=== PATIENT | female | born 1980 | race African-American/Black ===

== ENCOUNTER 2019-04-03 12:25 | Emergency (ER) | payer MEDICAID ==
[~2019-04-03] VITALS: Ht 157.5 cm; Wt 91.8 kg
[~2019-04-03 12:25] MED LIST: none per pt
--- NOTE | 2019-04-03 12:35 | NUR ---
PER REGISTRATION THEY CALLED L&D AND WERE TOLD TO REG PT DOWN HERE.
[2019-04-03 12:36] VITALS: BP 125/68
--- NOTE | 2019-04-03 13:39 | NUR ---
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
--- NOTE | 2019-04-03 13:48 | NUR ---
VICE PRESIDENT RISK MANAGEMENT: PT TO ROOM FROM ROSINA HARMAN
--- NOTE | 2019-04-03 14:04 | NUR ---
ASSUMING CARE OF PATIENT. DR. ESPINO AT BEDSIDE. PT C/O BACK PAIN WHICH IS WORSE WITH PALPATION. PATIENT DENIES ABD PAIN AND STATES THAT THE BABY IN [place] IS MOVING AND HAS NO COMPLAINTS RELATED TO THE .
[2019-04-03] MEDS ORDERED: ALBUTEROL SULFATE 2.5 MG/3 ML ONE (14:14)
[2019-04-03] MEDS ORDERED: HYDROcodone/APAP 10/325 MG TABLET ONE (14:17)
--- NOTE | 2019-04-03 14:23 | NUR ---
PT MEDICATED FOR PAIN PER MAR.
[2019-04-03] MEDS ORDERED: PNV11TAB5 PO (14:27)
[2019-04-03] MEDS ORDERED: ALBUTEROL SULFATE 2.5 MG/3 ML NPPB ONE (14:30)
[2019-04-03] MEDS ORDERED: HYDROcodone/APAP 10/325 MG TABLET PO ONE (14:30)
--- NOTE | 2019-04-03 15:49 | NUR ---
Patient given discharge instructions and they have confirmed that they understand the instructions. Patient ambulatory with steady gait.
== END 2019-04-03 15:50 | disposition home or self-care (01) ==
LOC: ED 13:58
DX: O99.512 Diseases of the respiratory system complicating pregnancy, second trimester (principal); J20.8 Acute bronchitis due to other specified organisms; O99.332 Smoking (tobacco) complicating pregnancy, second trimester; Z3A.26 26 weeks gestation of pregnancy
CPT/HCPCS: 94640; 99283; J7613

== ENCOUNTER 2019-05-02 11:21 | Outpatient (CLI) | payer MEDICAID ==
[~2019-05-02] VITALS: Ht 157.5 cm; Wt 93.3 kg
[~2019-05-02 11:21] MED LIST changes: +PNV11TAB5 PO
[2019-05-02 12:00] VITALS: BP 138/64
== END 2019-05-02 12:30 | disposition home or self-care (01) ==
LOC: LDOP 11:21
PROVIDERS: ATTEND Obstetrics & Gynecology
DX: O09.523 Supervision of elderly multigravida, third trimester (principal); Z3A.31 31 weeks gestation of pregnancy; M54.6 Pain in thoracic spine
CPT/HCPCS: 59025; 99201; G0463

== ENCOUNTER 2019-05-02 12:49 | Emergency (ER) | payer MEDICAID ==
[~2019-05-02] VITALS: Ht 154.9 cm; Wt 94.0 kg
--- NOTE | 2019-05-02 13:53 | NUR ---
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
[2019-05-02] MEDS ORDERED: HYDROcodone/APAP 5/325 TABLET ONE (14:15)
[2019-05-02] MEDS ORDERED: HYDROcodone/APAP 5/325 TABLET PO ONE (14:30)
[2019-05-02 14:48] LABS: MICROSCOPIC AUTO
[2019-05-02 14:49] LABS: CULTURE INDICATED? NO
[2019-05-02 14:55] VITALS: BP 117/44
--- NOTE | 2019-05-02 14:57 | NUR ---
PT RESTING COMFORTABLY, PAIN 1/10, SNACK PROVIDED. NO OTHER NEEDS AT THIS TIME.
== END 2019-05-02 15:12 | disposition home or self-care (01) ==
LOC: ED 14:40
DX: O9A.213 Injury, poisoning and certain other consequences of external causes complicating pregnancy, third trimester (principal); S29.012A Strain of muscle and tendon of back wall of thorax, initial encounter; Z3A.31 31 weeks gestation of pregnancy; Z87.440 Personal history of urinary (tract) infections; X58.XXXA Exposure to other specified factors, initial encounter; Y93.89 Activity, other specified; Y92.89 Other specified places as the place of occurrence of the external cause; Y99.8 Other external cause status
CPT/HCPCS: 81001; 99283

== ENCOUNTER 2019-06-29 05:33 | Inpatient (IN) | payer MEDICAID ==
[~2019-06-29] VITALS: Ht 157.5 cm; Wt 93.1 kg
[2019-06-29] MEDS ORDERED: LACTATED RINGERS 1,000 ML IV SCH (05:34)
[2019-06-29] MEDS ORDERED: SODIUM CITRATE/CITRIC ACID 30 ML UDC ONE (05:38)
[2019-06-29] MEDS ORDERED: NEWBORN KIT ONE (05:38)
[2019-06-29] MEDS ORDERED: OXYTOCIN 30U/ 0.9% NaCL 500ML 500 ML ONE (05:38)
[2019-06-29] MEDS ORDERED: METOCLOPRAMIDE 5 MG/ML, 2ML ONE (05:38)
[2019-06-29 05:53] VITALS: BP 140/92
[2019-06-29] MEDS ORDERED: LACTATED RINGERS 1,000 ML IVBOLUS ONE (06:00)
[2019-06-29] MEDS ORDERED: METOCLOPRAMIDE 5 MG/ML, 2ML IV ONE (06:00)
[2019-06-29] MEDS ORDERED: SODIUM CITRATE/CITRIC ACID 30 ML UDC PO ONE (06:00)
[2019-06-29 06:24] LABS: BASOPHILS # (AUTO) 0.03 x10^3/uL (0-0.1); BASOPHILS % (AUTO) 0 % (0-1); EOSINOPHILS # (AUTO) 0.03 x10^3/uL (0-0.4); EOSINOPHILS % (AUTO) 0 % (1-7); LYMPHOCYTES # (AUTO) 1.74 x10^3/uL (1-3.4); LYMPHOCYTES % (AUTO) 20 % (22-44); MD NO; MEAN CORPUSCULAR HEMOGLOBIN 27.4 pg (27.0-34.8); MEAN CORPUSCULAR HGB CONC 33.1 g/dL (32.4-35.8); MEAN CORPUSCULAR VOLUME 82.7 fL (80-100); MEAN PLATELET VOLUME 9.7 fL (7.4-10.4); MONOCYTES % (AUTO) 6 % (2-9); NEUTROPHILS # (AUTO) 6.48 x10^3/uL (1.8-6.8); NEUTROPHILS % (AUTO) 74 % (42-75); PLATELET COUNT 155 x10^3/uL (130-400); RED BLOOD COUNT 3.61 x10^6/uL (3.82-5.3); RED CELL DISTRIBUTION WIDTH 17.1 % (9.6-15.2)
[2019-06-29 06:56] LABS: ALANINE AMINOTRANSFERASE 23 U/L (12-78); ALBUMIN 2.6 g/dL (3.4-5.0); ANION GAP 9 mmol/L (5-15); CHLORIDE 112 mmol/L (98-107); CREATININE 0.57 mg/dL (0.55-1.02)
[2019-06-29 06:59] LABS: ALKALINE PHOSPHATASE 277 U/L (45-117); BILIRUBIN,TOTAL 0.2 mg/dL (0.2-1.0); TOTAL PROTEIN 6.3 g/dL (6.4-8.2)
[2019-06-29 07:14] LABS: CREATININE,URINE RANDOM 64.1 mg/dL
[2019-06-29] MEDS ORDERED: ONDANSETRON 2MG/ML, 2ML ONE (07:20)
[2019-06-29] MEDS ORDERED: OXYTOCIN 10 UNITS/ML, 1ML ONE (07:20)
[2019-06-29] MEDS ORDERED: CEFAZOLIN 1,000 MG ONE (07:20)
[2019-06-29] MEDS ORDERED: KETOROLAC 30 MG/1 ML ONE (07:20)
[2019-06-29] MEDS ORDERED: DEXAMETHASONE 4 MG/ML, 1ML ONE (07:20)
[2019-06-29] MEDS ORDERED: FENTANYL PF 100 MCG/2ML ONE (07:20)
[2019-06-29] MEDS ORDERED: PHENYLEPHRINE 10 MG/ML ONE (07:20)
[2019-06-29] MEDS ORDERED: EPHEDRINE 50 MG/ML, 1ML ONE (07:20)
[2019-06-29] MEDS ORDERED: FENTANYL PF 100 MCG/2ML IV PRN (07:30)
[2019-06-29] MEDS ORDERED: MIDAZOLAM 1 MG/ML, 2ML IV PRN (07:30)
[2019-06-29] MEDS ORDERED: MEPERIDINE/PF 25MG/0.5ML IVPush PRN (07:30)
[2019-06-29] MEDS ORDERED: PROMETHAZINE 25 MG/ML, 1ML IV PRN (07:30)
[2019-06-29] MEDS ORDERED: EPHEDRINE 50 MG/ML, 1ML IVPush PRN (07:30)
[2019-06-29] MEDS ORDERED: HYDROcodone/APAP 7.5-325MG/15ML UDC PO PRN (07:30)
[2019-06-29] MEDS ORDERED: hydrALAzine 20 MG/ML, 1ML IV PRN (07:30)
[2019-06-29] MEDS ORDERED: OXYcodone 5 MG/5 ML ORAL.SOL UDC PO PRN (07:30)
[2019-06-29] MEDS ORDERED: LABETALOL 5MG/ML, 20ML IV PRN (07:30)
[2019-06-29] MEDS ORDERED: HYDROmorphone 2 MG/ML, 1ML IVPush PRN (07:30)
[2019-06-29] MEDS ORDERED: ONDANSETRON 2MG/ML, 2ML IVPush PRN (07:30)
[2019-06-29] MEDS ORDERED: HYDROmorphone 2 MG/ML, 1ML ONE ×2 (08:09→09:22)
[2019-06-29] MEDS: LACTATED RINGERS 1,000 ML IV SCH ×4 (08:23→16:24)
[2019-06-29] MEDS: OXYTOCIN 30U/ 0.9% NaCL 500ML 500 ML IV SCH ×2 (08:23→16:24)
[2019-06-29] MEDS ORDERED: ONDANSETRON 2MG/ML, 2ML IV PRN (08:30)
[2019-06-29] MEDS ORDERED: MISOPROSTOL 200 MCG TABLET PO PRN (08:30)
[2019-06-29] MEDS ORDERED: CARBOPROST TROMETHAMINE 250 MCG/ML, 1ML IM PRN (08:30)
[2019-06-29] MEDS ORDERED: NICOTINE 21 MG/24 HR PATCH.TD24 TD ONE (08:30)
[2019-06-29] MEDS: PRENATAL VIT/IRON/FA 1 EACH TABLET PO SCH (09:00)
[2019-06-29] MEDS ORDERED: HYDROcodone/APAP 7.5-325MG/15ML UDC ONE (09:22)
[2019-06-29] MEDS ORDERED: HYDROcodone/APAP 5/325 TABLET ONE (09:30)
[2019-06-29 10:46] VITALS: BP 123/77
[2019-06-29 13:07] LABS: AMPHETAMINE SCREEN, URINE Negative (Negative); BENZODIAZEPINE SCREEN, URINE Negative (Negative); COCAINE SCREEN, URINE Negative (Negative); METHADONE SCREEN, URINE Negative (Negative)
[2019-06-29 13:08] LABS: BARBITURATE SCREEN, URINE Negative (Negative); CANNABINOID SCREEN, URINE Negative (Negative); OPIATE SCREEN, URINE Positive (Negative)
[2019-06-29] MEDS: OXYcodone/APAP 5/325MG TABLET PO PRN ×3 (13:28→21:34)
[2019-06-29 14:36] VITALS: BP 143/95
[2019-06-29 15:15] VITALS: BP 138/77
[2019-06-29 16:14] LABS: BASOPHILS # (AUTO) 0.02 x10^3/uL (0-0.1); BASOPHILS % (AUTO) 0 % (0-1); EOSINOPHILS % (AUTO) 0 % (1-7); LYMPHOCYTES # (AUTO) 1.02 x10^3/uL (1-3.4); LYMPHOCYTES % (AUTO) 8 % (22-44); MD NO; MEAN CORPUSCULAR HEMOGLOBIN 27.3 pg (27.0-34.8); MEAN CORPUSCULAR VOLUME 82.5 fL (80-100); MEAN PLATELET VOLUME 9.7 fL (7.4-10.4); MONOCYTES # (AUTO) 0.37 x10^3/uL (0.2-0.8); MONOCYTES % (AUTO) 3 % (2-9); NEUTROPHILS # (AUTO) 11.35 x10^3/uL (1.8-6.8); NEUTROPHILS % (AUTO) 89 % (42-75); PLATELET COUNT 150 x10^3/uL (130-400); RED BLOOD COUNT 3.43 x10^6/uL (3.82-5.3)
[2019-06-29] MEDS: IBUPROFEN 800 MG TABLET PO PRN (16:20)
[2019-06-29 19:40] VITALS: BP 150/82
[2019-06-30 00:09] VITALS: BP 134/79
[2019-06-30] MEDS: LACTATED RINGERS 1,000 ML IV SCH ×5 (00:23→16:23)
[2019-06-30] MEDS: IBUPROFEN 800 MG TABLET PO PRN ×3 (00:31→17:01)
[2019-06-30] MEDS: OXYcodone/APAP 5/325MG TABLET PO PRN ×5 (01:38→21:26)
[2019-06-30 04:06] VITALS: BP 146/81
[2019-06-30] MEDS: OXYTOCIN 30U/ 0.9% NaCL 500ML 500 ML IV SCH ×2 (04:23→14:23)
[2019-06-30 07:30] VITALS: BP 142/84
[2019-06-30] MEDS: DOCUSATE 100 MG CAPSULE PO PRN ×2 (08:19→21:25)
[2019-06-30] MEDS: PRENATAL VIT/IRON/FA 1 EACH TABLET PO SCH (08:19)
[2019-06-30] MEDS ORDERED: NICOTINE 14MG/24 HR PATCH.TD24 TD SCH (19:00)
[2019-06-30 19:30] VITALS: BP 128/98
[2019-06-30] MEDS: SIMETHICONE 80 MG CHEW TAB PO PRN (21:25)
[2019-07-01] MEDS: OXYTOCIN 30U/ 0.9% NaCL 500ML 500 ML IV SCH ×2 (00:23→10:23)
[2019-07-01] MEDS: LACTATED RINGERS 1,000 ML IV SCH ×4 (00:23→10:23)
[2019-07-01] MEDS: OXYcodone/APAP 5/325MG TABLET PO PRN ×4 (01:11→13:30)
[2019-07-01] MEDS: IBUPROFEN 800 MG TABLET PO PRN ×2 (01:11→09:32)
[2019-07-01] MEDS: SIMETHICONE 80 MG CHEW TAB PO PRN (05:18)
[2019-07-01] MEDS: DOCUSATE 100 MG CAPSULE PO PRN (07:47)
[2019-07-01] MEDS: PRENATAL VIT/IRON/FA 1 EACH TABLET PO SCH (07:47)
[2019-07-01 07:49] VITALS: BP 160/96
[2019-07-01 11:18] VITALS: BP 148/79
[2019-07-01] MEDS ORDERED: DOCU-131 PO (12:34)
[2019-07-01] MEDS ORDERED: IBUP-1223 PO (12:34)
[2019-07-01] MEDS ORDERED: OXYC-302 PO (12:34)
== END 2019-07-01 13:30 | disposition home or self-care (01) | DRG 787 ==
LOC: LDIP 05:33 → 2NW 10:24
PROVIDERS: ADMIT Obstetrics & Gynecology; ATTEND Obstetrics & Gynecology
PROC: 10D00Z1 Extraction of Products of Conception, Low, Open Approach (ICD-10-PCS; principal; 2019-06-29)
PROC: 0UN90ZZ Release Uterus, Open Approach (ICD-10-PCS; 2019-06-29)
DX: O77.0 Labor and delivery complicated by meconium in amniotic fluid (principal); O99.12 Other diseases of the blood and blood-forming organs and certain disorders involving the immune mechanism complicating childbirth; D69.3 Immune thrombocytopenic purpura; O34.211 Maternal care for low transverse scar from previous cesarean delivery; K66.0 Peritoneal adhesions (postprocedural) (postinfection); Z3A.39 39 weeks gestation of pregnancy; Z37.0 Single live birth
CPT/HCPCS: 36415; 80053; 80307; 82570; 84156; 84550; 85025; 86592; 86850; 86900; G0378; J0690; J1100; J1170; J1885; J2405; J3010; J2370; J2590; J2765; J7120